=== PATIENT | female | born 1945 | race Caucasian/White ===

== ENCOUNTER → 2016-04-24 | Outpatient (CLI) | payer MEDICARE, BC ==
--- NOTE | 2016-04-24 15:11 | RADRPT ---
PROCEDURE: XR pelvis/left hip. CLINICAL INDICATION: Hip pain TECHNIQUE: AP pelvis/AP and lateral left hip views performed. COMPARISON: No prior studies are available for comparison. FINDINGS: There is severe bilatera hip osteoarthrosis. This is associated with joint space narrowing, subchond ral sclerosis, subchondral cyst formation and osteophytosis. There is normal osseous mineralization . No fractures or osseous lesions are identified. The soft tissues are unremarkable. IMPRESSION: Severe bilateral hip osteoarthrosis. RPTAT: HGDB .Qamar Benton MD, MD Date Time Electronically viewed and signed by .Qamar Benton MD, on 04/24/2016 15:11 .B/
== END | disposition home or self-care (01) ==
LOC: HKI 13:59
PROVIDERS: ATTEND Orthopaedic Surgery
DX: M16.0 Bilateral primary osteoarthritis of hip (principal); M25.552 Pain in left hip; M25.551 Pain in right hip; M17.11 Unilateral primary osteoarthritis, right knee; M25.561 Pain in right knee
CPT/HCPCS: 73502; G0463